=== PATIENT | female | born 1990 | race Caucasian/White ===

== ENCOUNTER 2019-11-29 17:54 | Emergency (ER) | payer MEDICAID ==
[~2019-11-29] VITALS: Ht 167.6 cm; Wt 103.0 kg
[2019-11-29 17:57] VITALS: BP 158/71
[2019-11-29] MEDS ORDERED: IBUPROFEN 600MG TABLET PO ONE (21:30)
[2019-11-29 22:19] LABS: CLARITY URINE CLEAR (CLEAR); COLOR URINE YELLOW (YELLOW); KETONES URINE 2+ (NEGATIVE); LEUKOCYTE ESTERASE URINE 1+ (NEGATIVE); NITRITE URINE NEGATIVE (NEGATIVE); OCCULT BLOOD URINE NEGATIVE (NEGATIVE); PH URINE 5.5 (4.5-8.0); PROTEIN URINE NEGATIVE (NEGATIVE); SPECIFIC GRAVITY URINE 1.017 (1.005-1.030)
[2019-11-29] MEDS ORDERED: ACETAMINOPHEN 500MG TABLET PO NR (22:30)
[2019-11-29] MEDS ORDERED: DIAZEPAM 5 MG TABLET PO NR (22:30)
[2019-11-29] MEDS ORDERED: KETOROLAC 30MG/ML VIAL IM ONE (23:30)
[2019-11-30] MEDS ORDERED: ONDANSETRON 4MG ODT PO ONE (00:15)
[2019-11-30] MEDS ORDERED: MORPHINE SULFATE 10 MG/ML CPJ IM ONE (00:15)
== END 2019-11-30 01:30 | disposition home or self-care (01) ==
LOC: ER 17:54
DX: M54.5 Low back pain (principal); X58.XXXA Exposure to other specified factors, initial encounter; Y93.02 Activity, running; Y92.89 Other specified places as the place of occurrence of the external cause
CPT/HCPCS: 81003; 81025; 96372; 99284; J1885; J2270; Q0162

== ENCOUNTER 2021-03-13 17:33 | Emergency (ER) | payer MEDICAID ==
[~2021-03-13] VITALS: Ht 177.8 cm; Wt 104.0 kg
[2021-03-13] MEDS ORDERED: KETOROLAC 60MG/2ML VIAL IM ONE (18:45)
[2021-03-13] MEDS ORDERED: HYDROCODONE/ACETAMINOPHEN 10/325MG TABLET PO ONE (18:45)
[2021-03-13 19:08] VITALS: BP 126/92
[2021-03-13] MEDS ORDERED: IBUP-2030 MT (20:27)
[2021-03-13] MEDS ORDERED: CYCL10TA7 MT (20:27)
== END 2021-03-13 22:21 | disposition home or self-care (01) ==
LOC: ER 18:10
DX: M54.59 Other low back pain (principal); Z91.81 History of falling
CPT/HCPCS: 72100; 81025; 96372; 99283; J1885

== ENCOUNTER 2021-10-03 12:36 | Emergency (ER) | payer MEDICAID ==
[~2021-10-03] VITALS: Ht 167.6 cm; Wt 96.0 kg
[~2021-10-03 12:36] MED LIST: CYCL10TA7 MT; IBUP-2030 MT
[2021-10-03] MEDS ORDERED: IBUPROFEN 600MG TABLET PO ONE (16:30)
[2021-10-03 16:37] VITALS: BP 137/87
[2021-10-03] MEDS ORDERED: IBUP-2029 MT (17:13)
== END 2021-10-03 17:33 | disposition home or self-care (01) ==
LOC: ER 14:14
DX: M25.561 Pain in right knee (principal)
CPT/HCPCS: 73562; 99283

== ENCOUNTER 2023-01-21 13:48 | Emergency (ER) | payer MEDICAID ==
[~2023-01-21] VITALS: Ht 165.1 cm; Wt 105.0 kg
[~2023-01-21 13:48] MED LIST changes: +CYCL10TA21 MT; -CYCL10TA7 MT; +IBUP-2029 MT
[2023-01-21 14:01] VITALS: BP 122/77; PULSE 70; RESP 18; TEMP 98; O2SAT 97
[2023-01-21] MEDS ORDERED: BO1 TP (14:16)
== END 2023-01-21 14:43 | disposition home or self-care (01) ==
LOC: ER 13:48
DX: S51.811A Laceration without foreign body of right forearm, initial encounter (principal); X58.XXXA Exposure to other specified factors, initial encounter; Y93.89 Activity, other specified; Y92.89 Other specified places as the place of occurrence of the external cause; Y99.8 Other external cause status
CPT/HCPCS: 12001; 99282

== ENCOUNTER 2023-02-25 19:57 | Emergency (ER) | payer MEDICAID ==
[~2023-02-25] VITALS: Ht 165.1 cm; Wt 104.7 kg
[~2023-02-25 19:57] MED LIST changes: +BO1 TP
[2023-02-25 21:04] VITALS: O2SAT 98
[2023-02-25 23:04] LABS: BASOPHILS % 0.9 % (0.0-2.0); EOSINOPHILS % 2.7 % (0.0-5.0); HEMATOCRIT. 38.9 % (36.0-48.0); HEMOGLOBIN. 13.2 g/dL (12.0-16.0); LYMPHOCYTES % 31.4 % (20.0-50.0); MEAN CORPUSCULAR HEMOGLOBIN 29.1 pg (28.0-32.0); MEAN CORPUSCULAR HGB CONC 33.9 g/dL (31.0-37.0); MEAN CORPUSCULAR VOLUME 85.8 fL (81.0-99.0); MEAN PLATELET VOLUME 7.7 fl (7.4-10.4); MONOCYTES % 7.6 % (2.0-8.0); NEUTROPHILS % 57.4 % (40.0-76.0); PLATELET 383 x1000/uL (130-400); RED BLOOD CELL COUNT 4.54 mill/uL (4.2-5.4); RED CELL DISTRIBUTION WIDTH 14.1 % (11.6-14.6); WHITE BLOOD COUNT 10.7 x1000/uL (4.5-11.0)
[2023-02-25 23:10] LABS: CHLORIDE 104 mEq/L (98-107); INDEX HEMOLYSI 1 (1-3); INDEX ICTERIC 1 (1-4); INDEX LIPEMIC 1 (1-3); POTASSIUM 3.4 mEq/L (3.5-5.1); SODIUM 139 mEq/L (136-145)
[2023-02-25 23:20] LABS: ALANINE AMINOTRANSFERASE 47 IU/L (13-61); ALBUMIN 4.1 g/dL (3.4-5.0); ASPARTATE AMINOTRANSFERASE 27 IU/L (15-37); BILIRUBIN TOTAL 0.4 mg/dL (0.1-1.0); CALCIUM 9.1 mg/dL (8.5-10.1); CARBON DIOXIDE 27 mEq/L (21-32); CREATININE 0.6 mg/dL (0.6-1.3); GLUCOSE 90 mg/dL (70-105); PROTEIN TOTAL 7.9 g/dL (6.0-8.3); UREA NITROGEN BLOOD 16 mg/dL (7-21)
[2023-02-26 00:41] LABS: HCG SCREEN NEGATIVE
[2023-02-26 02:02] LABS: CLARITY URINE CLEAR (CLEAR); COLOR URINE YELLOW (YELLOW); GLUCOSE URINE NEGATIVE (NEGATIVE); KETONES URINE NEGATIVE (NEGATIVE); LEUKOCYTE ESTERASE URINE NEGATIVE (NEGATIVE); NITRITE URINE NEGATIVE (NEGATIVE); OCCULT BLOOD URINE NEGATIVE (NEGATIVE); PH URINE 5.5 (4.5-8.0); PROTEIN URINE NEGATIVE (NEGATIVE); SPECIFIC GRAVITY URINE 1.025 (1.005-1.030); UROBILINOGEN URINE 0.2 E.U./dL (0.2-1.0)
[2023-02-26] MEDS ORDERED: IOHEXOL-300 100 ML BOTTLE ONE (02:24)
[2023-02-26 10:04] VITALS: BP 113/66; PULSE 78; RESP 19; TEMP 98.6
== END 2023-02-26 10:47 | disposition home or self-care (01) ==
LOC: ER 22:44
DX: K62.5 Hemorrhage of anus and rectum (principal)
CPT/HCPCS: 80053; 81025; 84703; 85025; 86850; 86900; 86901; 36415; 99285; 81003; 74177; Q9967; Z7610

== ENCOUNTER → 2023-05-07 | Emergency (ER) | payer MEDICAID ==
[2023-05-07 13:03] VITALS: PULSE 94
== END | disposition left against medical advice (07) ==
LOC: ER 12:58
DX: M25.561 Pain in right knee (principal); Z53.21 Procedure and treatment not carried out due to patient leaving prior to being seen by health care provider
CPT/HCPCS: 99281

== ENCOUNTER 2023-09-08 13:04 | Emergency (ER) | payer MEDICAID, OTHER ==
[~2023-09-08] VITALS: Ht 167.6 cm; Wt 101.0 kg
[2023-09-08 13:25] VITALS: BP 136/86; TEMP 98.6; O2SAT 99
[2023-09-08 14:44] LABS: BASOPHILS % 0.6 % (0.0-2.0); EOSINOPHILS % 0.8 % (0.0-5.0); HEMATOCRIT. 42.4 % (36.0-48.0); HEMOGLOBIN. 14.2 g/dL (12.0-16.0); LYMPHOCYTES % 13.4 % (20.0-50.0); MEAN CORPUSCULAR HEMOGLOBIN 28.9 pg (28.0-32.0); MEAN CORPUSCULAR HGB CONC 33.5 g/dL (31.0-37.0); MEAN CORPUSCULAR VOLUME 86.3 fL (81.0-99.0); MEAN PLATELET VOLUME 7.4 fl (7.4-10.4); MONOCYTES % 5.7 % (2.0-8.0); NEUTROPHILS % 79.5 % (40.0-76.0); PLATELET 431 x1000/uL (130-400); RED BLOOD CELL COUNT 4.91 mill/uL (4.2-5.4); RED CELL DISTRIBUTION WIDTH 13.8 % (11.6-14.6); WHITE BLOOD COUNT 11.8 x1000/uL (4.5-11.0)
[2023-09-08 15:01] LABS: ALANINE AMINOTRANSFERASE 24 IU/L (10-49); ALBUMIN 4.7 g/dL (3.2-4.8); ASPARTATE AMINOTRANSFERASE 15 IU/L (<34); BILIRUBIN TOTAL 0.4 mg/dL (0.1-1.0); CALCIUM 9.8 mg/dL (8.7-10.4); CARBON DIOXIDE 26 mEq/L (21-32); CHLORIDE 105 mEq/L (98-107); CREATININE 0.6 mg/dL (0.6-1.0); GLUCOSE 130 mg/dL (70-105); POTASSIUM 3.8 mEq/L (3.5-5.1); PROTEIN TOTAL 7.3 g/dL (6.0-8.3); SODIUM 137 mEq/L (136-145); UREA NITROGEN BLOOD 8 mg/dL (9-23)
[2023-09-08 15:14] LABS: HCG SCREEN NEGATIVE
[2023-09-08 16:07] LABS: CLARITY URINE CLEAR (CLEAR); COLOR URINE YELLOW (YELLOW); GLUCOSE URINE NEGATIVE (NEGATIVE); KETONES URINE NEGATIVE (NEGATIVE); LEUKOCYTE ESTERASE URINE NEGATIVE (NEGATIVE); NITRITE URINE NEGATIVE (NEGATIVE); OCCULT BLOOD URINE NEGATIVE (NEGATIVE); PROTEIN URINE NEGATIVE (NEGATIVE); UROBILINOGEN URINE 0.2 E.U./dL (0.2-1.0)
[2023-09-08 18:34] VITALS: PULSE 97; RESP 14
[2023-09-08] MEDS ORDERED: IBUP-2029 MT (18:37)
[2023-09-08] MEDS ORDERED: PHEN51CR24 TP (18:52)
== END 2023-09-08 15:32 | disposition home or self-care (01) ==
LOC: ER 13:46
DX: K64.4 Residual hemorrhoidal skin tags (principal)
CPT/HCPCS: 36415; 76830; 76856; 80053; 81003; 84703; 85025; 99284